=== PATIENT | male | born 1990 | race Caucasian/White ===

== ENCOUNTER → 2017-10-17 | Outpatient (CLI) | payer OTHER ==
[~2017-10-17] MED LIST: NEXIUM20 MG PO
--- NOTE | 2017-10-17 10:25 | Diagnostic Imaging Report ---
PROCEDURE:ABDOMINAL ULTRASOUND COMPARISON:None. INDICATIONS:Abdominal pain FINDINGS: Liver: Measures 16.3 cm with increased hepatic parenchymal echogenicity. No focal mass. Main portal vein: The measures 10 mm with normal hepatopedal flow. Gallbladder: Small non-shadowing echogenic nodule measuring 6 mm near the neck of the gallbladder likely represents a small polyp. Common Bile Duct: Measures 0.4 cm with no echogenic filling defect. Sonographic Chase's sign: Negative Right kidney: Measures 11.5 x 4.8 x 5.6 cm. No solid or cystic mass, echogenic calculi, or hydronephrosis. Normal parenchymal echogenicity. Left kidney: Measures 13.4 x 6.5 x 4.7 cm. No solid or cystic mass, echogenic calculi, or hydronephrosis. Normal parenchymal echogenicity. Spleen: Measures 11.6 x 5.4 x 5.5 cm. No mass. Pancreas: Limited visualization. Inferior vena cava: Limited visualization. Aorta: Limited visualization. Ascites: None. CONCLUSION: 1. Small gallbladder wall polyp. 2. Diffuse hepatic increased echogenicity. Sonny Quintana D.O. Dictated by: Sonny Quintana D.O. on 10/17/2017 at 10:29 Electronically approved by: Sonny Quintana D.O. on 10/17/2017 at 10:29
== END | disposition home or self-care (01) ==
LOC: US 08:43
PROVIDERS: ATTEND Family Medicine
DX: R10.9 Unspecified abdominal pain (principal); K82.4 Cholesterolosis of gallbladder
CPT/HCPCS: 76700

== ENCOUNTER → 2018-02-17 | Outpatient (CLI) | payer MEDICARE, OTHER ==
--- NOTE | 2018-02-17 15:31 | Diagnostic Imaging Report ---
EXAMINATION: CT of the abdomen and pelvis without contrast. TECHNIQUE: Spiral CT images of the abdomen and pelvis were performed from the lung bases to the lesser trochanters. No intravenous contrast was given per renal stone protocol. Coronal and sagittal reformatted images were obtained. COMPARISON: None. CLINICAL HISTORY:Left lower quadrant pain, gross hematuria DISCUSSION: ABSENCE OF INTRAVENOUS CONTRAST DECREASES SENSITIVITY FOR DETECTION OF FOCAL LESIONS AND VASCULAR PATHOLOGY. ABDOMEN/PELVIS: LOWER THORAX: Unremarkable. HEPATOBILIARY: Liver is normal in size, measuring approximately 14.6 cm in the right midclavicular line. Normal contour. Diffusely decreased attenuation of the hepatic parenchyma consistent with steatosis. No focal lesions. No intra or extrahepatic biliary ductal dilation. GALLBLADDER: No radio-opaque stones or sludge. No wall thickening. SPLEEN: Mild splenomegaly, measuring 13.5 cm in AP diameter PANCREAS: No focal masses or ductal dilatation. ADRENALS: Dystrophic calcifications in the left adrenal gland (series 3, image 58 and sagittal image 93). Right adrenal gland is unremarkable. KIDNEYS/URETERS: Right: No renal or ureteral calculi. No hydronephrosis, hydroureter or evidence of obstruction. No renal contour abnormalities or significant perinephric stranding. Left: 4 mm nonobstructing calculus in the superior to mid aspect (series 3, image 68). No other renal or any ureteral calculi. No hydronephrosis, hydroureter or evidence of obstruction. No renal contour abnormalities or significant perinephric stranding. PELVIC ORGANS/BLADDER: Bladder is decompressed but grossly unremarkable. No bladder calculi, wall thickening or focal lesions. Prostate is unremarkable. PERITONEUM/RETROPERITONEUM: No free air or fluid. LYMPH NODES: No intra-abdominal,retroperitoneal, pelvic or inguinal lymphadenopathy. VESSELS: Unremarkable for noncontrast exam. GI TRACT: No bowel dilation or evidence of obstruction. No pericolonic inflammatory changes. Appendix is well identified and normal in caliber. BONES AND SOFT TISSUES: No aggressive lytic lesions. Small fat containing left inguinal hernia. IMPRESSION: 1. 4 mm nonobstructing calculus in the superior to mid aspect of the left kidney. No other renal or any ureteral or bladder calculi. No hydronephrosis or obstruction. No renal contour abnormalities. 2. Diffuse hepatic steatosis. No focal lesions within the limitations of this noncontrast exam. 3. Mild splenomegaly. 4. Dystrophic calcifications in the left adrenal gland, which may represent the sequela of prior inflammation/infection, trauma or hemorrhage. 5. Findings discussed with Dr. Lloyd February 17, 2018 at 1525 hours. Signed by: Dr. Nikolai Sy M.D. on 02/17/2018 3:28 PM
== END ==
LOC: CT 14:07
PROVIDERS: ATTEND Family Medicine
DX: R31.0 Gross hematuria (principal); R10.32 Left lower quadrant pain; R10.12 Left upper quadrant pain
CPT/HCPCS: 74176

== ENCOUNTER → 2019-01-25 | Outpatient (CLI) | payer OTHER ==
--- NOTE | 2019-01-26 07:59 | Diagnostic Imaging Report ---
Examination: MRI SPINE LUMBAR WO CONTRAST History: Nonradiating low back pain. Comparison studies: None Technique: Sagittal, coronal and axial T2 , sagittal T1 and STIR; axial spin density oblique. Findings: Number of lumbar vertebral bodies: Five with lumbarization of S1. Alignment: Normal lordosis. No scoliosis. Soft tissues: No T2 hyperintense inflammatory changes. Posterior paraspinal soft tissues and muscles: No abnormality. Lower thoracic cord: Normal in signal and morphology. The tip of the conus is at L1. Cauda equina: No masses. No arachnoiditis. Spinal canal caliber: There is congenital spinal canal stenosis due to foreshortened pedicles. Vertebrae: No fractures, infection or neoplasm. Degenerative changes: L1-L2: No abnormalities. L2-L3: No abnormalities. L3-L4: Asymmetric to the left disc bulge with a left central and subarticular disc protrusion with associated annular fissure. The subarticular disc protrusion results in severe left lateral recess narrowing and impingement of the descending left L4 nerve root. There is also moderate canal stenosis. No foraminal stenosis. L4-L5: Central disc protrusion which mildly flattens the ventral thecal sac. No foraminal stenosis. L5-S1: Central, right central and subarticular disc protrusion causes moderate right lateral recess narrowing with contact of the descending right L5 nerve root and mild right neural foraminal narrowing No left foraminal narrowing. IMPRESSION: Transitional anatomy, as above. Congenital canal stenosis with superimposed moderate degenerative canal stenosis at L3-L4. Degenerative changes from L3-L4 through L5-S1 with severe left lateral recess narrowing at L3-L4 and impingement of the descending left L4 nerve root and moderate right lateral recess narrowing at L5-S1 with contact of the descending right L5 nerve root. No significant (not moderate or severe) foraminal stenosis. Signed by: Dr. Margaret Zuniga M.D. on 01/26/2019 7:56 AM
== END ==
LOC: MRI 14:32
PROVIDERS: ATTEND Family Medicine
DX: M54.16 Radiculopathy, lumbar region (principal)
CPT/HCPCS: 72148

== ENCOUNTER → 2019-04-26 | Outpatient (CLI) | payer MEDICARE, OTHER ==
--- NOTE | 2019-04-26 12:40 | Diagnostic Imaging Report ---
EXAMINATION: SP LUMBAR, COMPLETE MIN 4VW INDICATION: Fall, back pain COMPARISON: None FINDINGS: No compression fracture. Vertebral body heights are well-maintained. Grade 1 retrolisthesis at L4-5. Grade 1 retrolisthesis at L2-3. Mild multilevel degenerative changes. No spondylolysis. IMPRESSION: No compression fracture. Mild alignment abnormalities as above. Signed by: Deepak Tamayo MD on 04/26/2019 12:36 PM
== END ==
LOC: RAD 10:19
PROVIDERS: ATTEND Family Medicine
DX: M54.5 Low back pain (principal); W18.2XXA Fall in (into) shower or empty bathtub, initial encounter
CPT/HCPCS: 72110

== ENCOUNTER → 2021-08-30 | Outpatient (CLI) | payer MEDICARE, OTHER | LOC: US 08:49 | PROVIDERS: ATTEND Family Medicine | DX: N23 Unspecified renal colic (principal) | CPT/HCPCS: 76770 ==

== ENCOUNTER → 2021-11-26 | Outpatient (CLI) | payer MEDICARE, OTHER | LOC: US 08:07 | PROVIDERS: ATTEND Family Medicine | DX: K75.81 Nonalcoholic steatohepatitis (NASH) (principal) | CPT/HCPCS: 76705 ==

== ENCOUNTER → 2024-10-12 | Outpatient (REF) | payer MEDICARE, OTHER ==
[~2024-10-12] MED LIST changes: +IOPAMIDOL 370 MG/ML 100 ML INFUS..BTL INJ ONE; +NITROGLYCERIN 0.4 MG SUBL ONE; +SODIUM CHLORIDE 0.9% 100 ML ONE
[2024-10-12 10:41] LABS: CREATININE, SERUM 0.83 mg/dL (0.72-1.25)
== END ==
LOC: CT 09:14
PROVIDERS: ATTEND Internal Medicine Cardiovascular Disease
DX: R06.02 Shortness of breath (principal)
CPT/HCPCS: 36415; 75574; 82565; 84520; J7050; Q9967